=== PATIENT | male | born 1940 | race Asian ===

== ENCOUNTER 2020-03-06 00:16 | Inpatient (IN) | payer MEDICARE ==
[~2020-03-06] VITALS: Ht 172.7 cm; Wt 68.0 kg
[2020-03-06] MEDS ORDERED: MORPHINE SULFATE 4 MG/ML CPJ (NOT FOR IM USE) IV STA (00:31)
[2020-03-06] MEDS ORDERED: ONDANSETRON HCL 4MG/2ML INJ IV STA (00:31)
[2020-03-06 00:52] LABS: BASOPHILS % 0.3 % (0.0-2.0); EOSINOPHILS % 0.5 % (0.0-5.0); HEMATOCRIT. 39.8 % (42.0-52.0); HEMOGLOBIN. 13.7 g/dL (14.0-18.0); LYMPHOCYTES % 15.2 % (20.0-50.0); MEAN CORPUSCULAR HEMOGLOBIN 29.6 pg (28.0-32.0); MEAN CORPUSCULAR VOLUME 85.9 fL (80.0-94.0); MEAN PLATELET VOLUME 7.2 fl (7.4-10.4); MONOCYTES % 4.3 % (2.0-8.0); NEUTROPHILS % 79.7 % (40.0-76.0); PLATELET 367 x1000/uL (130-400); RED BLOOD CELL COUNT 4.64 mill/uL (4.7-6.1); RED CELL DISTRIBUTION WIDTH 13.4 % (11.6-14.6)
[2020-03-06 00:56] LABS: CHLORIDE 99 mEq/L (98-107)
[2020-03-06] MEDS ORDERED: PIPERACILLIN/TAZOBACTAM 3.375GM/50ML PREMIX IV ONE (01:15)
[2020-03-06] MEDS ORDERED: PIPERACILLIN/TAZ 3.375G PREMIX 50 ML IV NR (01:30)
[2020-03-06] MEDS ORDERED: HYDROMORPHONE HCL/PF 2MG/ML CPJ IV ONE (02:45)
[2020-03-06 02:52] LABS: COLOR URINE YELLOW (YELLOW); KETONES URINE TRACE (NEGATIVE); LEUKOCYTE ESTERASE URINE NEGATIVE (NEGATIVE); NITRITE URINE NEGATIVE (NEGATIVE); OCCULT BLOOD URINE NEGATIVE (NEGATIVE); PROTEIN URINE 1+ (NEGATIVE); SPECIFIC GRAVITY URINE 1.021 (1.005-1.030); UROBILINOGEN URINE 0.2 E.U./dL (0.2-1.0)
[2020-03-06 02:53] LABS: CLARITY URINE HAZY (CLEAR)
[2020-03-06] MEDS ORDERED: IOHEXOL-300 100 ML BOTTLE ONE (03:02)
[2020-03-06] MEDS ORDERED: SUCCINYLCHOLINE CHLORIDE 200MG/10ML IV ONE (05:25)
[2020-03-06] MEDS ORDERED: METOCLOPRAMIDE HCL 10MG/2ML VIAL ONE (05:25)
[2020-03-06] MEDS ORDERED: SODIUM CHLORIDE 0.9% 10ML VIAL ONE (05:25)
[2020-03-06] MEDS ORDERED: ROCURONIUM BROMIDE 10MG/ML VIAL 5ML IV ONE (05:25)
[2020-03-06] MEDS ORDERED: PHENYLEPHRINE HCL 10 MG/ML 1ML (IV VIAL) IV ONE (05:25)
[2020-03-06] MEDS ORDERED: LIDOCAINE HCL/PF 1% 10 MG/ML 5ML VIAL ONE (05:25)
[2020-03-06] MEDS ORDERED: EPHEDRINE SULFATE 50MG/ML VIAL ONE (05:25)
[2020-03-06] MEDS ORDERED: PROPOFOL 200MG/20ML VIAL IV ONE (05:25)
[2020-03-06] MEDS ORDERED: NEOSTIGMINE METHYLSULFATE 1MG/ML 10 ML VIAL ONE (05:25)
[2020-03-06] MEDS ORDERED: MIDAZOLAM HCL 2 MG/2 ML VIAL ONE (05:25)
[2020-03-06] MEDS ORDERED: ONDANSETRON HCL 4MG/2ML INJ ONE (05:25)
[2020-03-06] MEDS ORDERED: GLYCOPYRROLATE 0.2 MG/ML 2ML VIAL ONE (05:25)
[2020-03-06] MEDS ORDERED: FENTANYL CITRATE/PF 50MCG/ML 2ML VIAL ONE (05:25)
[2020-03-06] MEDS ORDERED: ALBUMIN HUMAN 12.5G/250ML (5%) IV ONE (05:43)
[2020-03-06] MEDS ORDERED: LEVOFLOXACIN 500MG PREMIX 100 ML IV SCH (05:45)
[2020-03-06] MEDS ORDERED: LORAZEPAM 2MG/ML CPJ IV PRN (06:30)
[2020-03-06] MEDS ORDERED: IPRATROPIUM/ALBUTEROL 0.5-3(2.5)MG/3ML NEB NEB PRN (06:30)
[2020-03-06] MEDS ORDERED: DEXT 5%/LACTATED RINGERS 1,000 ML IV SCH (06:30)
[2020-03-06] MEDS ORDERED: ONDANSETRON HCL 4MG/2ML INJ IV PRN ×2 (06:30→06:45)
[2020-03-06] MEDS ORDERED: PIPERACILLIN/TAZ 3.375G PREMIX 50 ML IV SCH (06:30)
[2020-03-06] MEDS ORDERED: MORPHINE SULFATE 2 MG/ML CPJ (NOT FOR IM USE) IV PRN ×2 (06:30→06:45)
[2020-03-06] MEDS ORDERED: ACETAMINOPHEN 650MG SUPP PR PRN (06:30)
[2020-03-06] MEDS ORDERED: NITROGLYCERIN 0.4MG TABLET SL SL PRN (06:30)
[2020-03-06] MEDS ORDERED: SODIUM CHLORIDE 0.9% 1,000 ML IV ONE (06:45)
[2020-03-06] MEDS ORDERED: MEPERIDINE HCL/PF 25MG/ML CPJ IV PRN ×2 (06:45)
[2020-03-06] MEDS: HYDROMORPHONE HCL/PF 2MG/ML CPJ IV PRN ×2 (07:01→07:58)
[2020-03-06] MEDS ORDERED: HYDROMORPHONE HCL/PF 2MG/ML CPJ ONE (07:03)
[2020-03-06] MEDS ORDERED: LABETALOL 5MG/ML SYR 20 MG/4 ML SYRINGE IV ONE ×2 (07:45→07:56)
[2020-03-06 08:00] VITALS: BP 135/52
[2020-03-06] MEDS ORDERED: PIPERACILLIN/TAZOBACTAM 3.375 G in DEXT 5% WATER 100 ML IV NR (09:00)
[2020-03-06] MEDS: FAMOTIDINE 20MG/2ML VIAL IV SCH ×2 (09:35→20:39)
[2020-03-06 09:40] VITALS: BP 137/74
[2020-03-06 12:00] VITALS: BP 151/57
[2020-03-06] MEDS: DEXT 5%/0.45% NACL KCL 20MEQ/L 1,000 ML IV SCH (13:53)
[2020-03-06] MEDS: MORPHINE SULFATE 4 MG/ML CPJ (NOT FOR IM USE) IV PRN ×2 (13:54→21:00)
[2020-03-06] MEDS ORDERED: HYDRALAZINE 20MG/ML VIAL IV PRN (14:45)
[2020-03-06] MEDS: PIPERACILLIN/TAZOBACTAM 3.375 G in DEXT 5% WATER 100 ML IV SCH ×2 (15:15→20:38)
[2020-03-06 16:00] VITALS: BP_SYST 152; BP_SYST 178; BP_DIAS 65; BP_DIAS 71
[2020-03-06] MEDS ORDERED: PANTOPRAZOLE SODIUM 40 MG/VIAL IV SCH (18:00)
[2020-03-06] MEDS: MORPHINE SULFATE 2 MG/ML CPJ (NOT FOR IM USE) IV PRN (18:06)
[2020-03-06 20:00] VITALS: BP 158/69
[2020-03-07] VITALS: BP 142/56
[2020-03-07 04:00] VITALS: BP 170/57
[2020-03-07] MEDS: MORPHINE SULFATE 4 MG/ML CPJ (NOT FOR IM USE) IV PRN ×2 (04:26→11:29)
[2020-03-07] MEDS: PIPERACILLIN/TAZOBACTAM 3.375 G in DEXT 5% WATER 100 ML IV SCH ×3 (06:27→21:35)
[2020-03-07 08:00] VITALS: BP 144/55
[2020-03-07] MEDS: FAMOTIDINE 20MG/2ML VIAL IV SCH ×2 (09:00→21:35)
[2020-03-07 10:07] LABS: BASOPHILS % 0.2 % (0.0-2.0); EOSINOPHILS % 0.5 % (0.0-5.0); HEMATOCRIT. 35.7 % (42.0-52.0); MEAN CORPUSCULAR HEMOGLOBIN 29.4 pg (28.0-32.0); MEAN CORPUSCULAR VOLUME 87.2 fL (80.0-94.0); MEAN PLATELET VOLUME 7.4 fl (7.4-10.4); MONOCYTES % 6.2 % (2.0-8.0); NEUTROPHILS % 85.1 % (40.0-76.0); PLATELET 240 x1000/uL (130-400); RED CELL DISTRIBUTION WIDTH 13.5 % (11.6-14.6)
[2020-03-07 10:16] LABS: CHLORIDE 104 mEq/L (98-107)
[2020-03-07 10:22] LABS: PHOSPHORUS 1.9 mg/dL (2.5-4.9)
[2020-03-07 12:00] VITALS: BP 153/64
[2020-03-07] MEDS: FLUCONAZOLE 200 MG/100ML BAG 100 ML IV SCH (14:03)
[2020-03-07 16:00] VITALS: BP 167/65
[2020-03-07 20:00] VITALS: BP 173/65
[2020-03-08] VITALS: BP 158/76
[2020-03-08] MEDS: DEXT 5%/0.45% NACL KCL 20MEQ/L 1,000 ML IV SCH ×2 (00:47→23:52)
[2020-03-08 04:00] VITALS: BP 180/81
[2020-03-08] MEDS: HYDRALAZINE 10 MG in SODIUM CHLORIDE 0.9% 49.5 ML IV PRN (05:00)
[2020-03-08 06:07] LABS: CHLORIDE 103 mEq/L (98-107)
[2020-03-08 06:16] LABS: PHOSPHORUS 1.4 mg/dL (2.5-4.9)
[2020-03-08] MEDS: PIPERACILLIN/TAZOBACTAM 3.375 G in DEXT 5% WATER 100 ML IV SCH ×3 (06:19→21:45)
[2020-03-08] MEDS: MORPHINE SULFATE 2 MG/ML CPJ (NOT FOR IM USE) IV PRN (06:21)
[2020-03-08 06:24] LABS: BASOPHILS % 0.2 % (0.0-2.0); EOSINOPHILS % 0.5 % (0.0-5.0); HEMOGLOBIN. 11.7 g/dL (14.0-18.0); LYMPHOCYTES % 7.7 % (20.0-50.0); MEAN CORPUSCULAR HEMOGLOBIN 29.7 pg (28.0-32.0); MEAN CORPUSCULAR VOLUME 86.1 fL (80.0-94.0); MEAN PLATELET VOLUME 7.8 fl (7.4-10.4); MONOCYTES % 5.4 % (2.0-8.0); NEUTROPHILS % 86.2 % (40.0-76.0); PLATELET 243 x1000/uL (130-400); RED BLOOD CELL COUNT 3.95 mill/uL (4.7-6.1); RED CELL DISTRIBUTION WIDTH 13.6 % (11.6-14.6)
[2020-03-08 08:00] VITALS: BP 155/69
[2020-03-08] MEDS: FAMOTIDINE 20MG/2ML VIAL IV SCH ×2 (09:02→21:44)
[2020-03-08 12:00] VITALS: BP 154/69
[2020-03-08] MEDS: FLUCONAZOLE 200 MG/100ML BAG 100 ML IV SCH (13:56)
[2020-03-08 16:00] VITALS: BP 161/68
[2020-03-08] MEDS: ACETAMINOPHEN 650MG SUPP PR PRN ×2 (16:10→21:44)
[2020-03-08 20:00] VITALS: BP 165/77
[2020-03-08] MEDS ORDERED: FLUCONAZOLE IV NR (20:00)
[2020-03-09] VITALS: BP 173/73
[2020-03-09] MEDS ORDERED: SODIUM PHOS,M-BASIC-D-BASIC 30 MM in DEXT 5% WATER 500 ML IV NR ×2
[2020-03-09] MEDS: HYDRALAZINE 10 MG in SODIUM CHLORIDE 0.9% 49.5 ML IV PRN ×2 (00:42→14:02)
[2020-03-09] MEDS: PIPERACILLIN/TAZOBACTAM 3.375 G in DEXT 5% WATER 100 ML IV SCH ×4 (03:14→21:00)
[2020-03-09 04:00] VITALS: BP 159/68
[2020-03-09 06:12] LABS: BASOPHILS % 0.2 % (0.0-2.0); EOSINOPHILS % 1.3 % (0.0-5.0); HEMATOCRIT. 35.3 % (42.0-52.0); HEMOGLOBIN. 11.9 g/dL (14.0-18.0); LYMPHOCYTES % 8.6 % (20.0-50.0); MEAN PLATELET VOLUME 7.3 fl (7.4-10.4); MONOCYTES % 7.2 % (2.0-8.0); NEUTROPHILS % 82.7 % (40.0-76.0); PLATELET 268 x1000/uL (130-400); RED BLOOD CELL COUNT 4.11 mill/uL (4.7-6.1); RED CELL DISTRIBUTION WIDTH 13.6 % (11.6-14.6)
[2020-03-09 06:46] LABS: CHLORIDE 103 mEq/L (98-107)
[2020-03-09 06:51] LABS: PHOSPHORUS 2.3 mg/dL (2.5-4.9)
[2020-03-09 08:00] VITALS: BP 155/73
[2020-03-09] MEDS: FAMOTIDINE 20MG/2ML VIAL IV SCH ×2 (09:00→21:14)
[2020-03-09 12:00] VITALS: BP 176/57
[2020-03-09] MEDS: FLUCONAZOLE 400MG/200ML BAG 200 ML IV SCH (13:36)
[2020-03-09 16:00] VITALS: BP 128/68
[2020-03-09 20:00] VITALS: BP 147/67
[2020-03-10] VITALS (7 sets, daily range): BP systolic 111–175; BP diastolic 62–77
[2020-03-10] MEDS: PIPERACILLIN/TAZOBACTAM 3.375 G in DEXT 5% WATER 100 ML IV SCH ×4 (04:30→21:11)
[2020-03-10] MEDS: DEXT 5%/0.45% NACL KCL 20MEQ/L 1,000 ML IV SCH ×2 (04:42→15:28)
[2020-03-10 06:41] LABS: CHLORIDE 102 mEq/L (98-107)
[2020-03-10 07:00] LABS: BASOPHILS % 0.2 % (0.0-2.0); EOSINOPHILS % 2.4 % (0.0-5.0); HEMOGLOBIN. 11.9 g/dL (14.0-18.0); LYMPHOCYTES % 12.3 % (20.0-50.0); MEAN CORPUSCULAR HEMOGLOBIN 29.3 pg (28.0-32.0); MEAN CORPUSCULAR VOLUME 86.3 fL (80.0-94.0); MEAN PLATELET VOLUME 7.4 fl (7.4-10.4); MONOCYTES % 8.6 % (2.0-8.0); NEUTROPHILS % 76.5 % (40.0-76.0); PLATELET 303 x1000/uL (130-400); RED BLOOD CELL COUNT 4.05 mill/uL (4.7-6.1); RED CELL DISTRIBUTION WIDTH 13.6 % (11.6-14.6)
[2020-03-10] MEDS: FAMOTIDINE 20MG/2ML VIAL IV SCH ×2 (09:14→21:11)
[2020-03-10] MEDS: HYDRALAZINE 10 MG in SODIUM CHLORIDE 0.9% 49.5 ML IV PRN ×2 (12:33→21:19)
[2020-03-10] MEDS: FLUCONAZOLE 400MG/200ML BAG 200 ML IV SCH (13:09)
[2020-03-11] VITALS (7 sets, daily range): BP systolic 114–168; BP diastolic 62–82
[2020-03-11] MEDS: DEXT 5%/0.45% NACL KCL 20MEQ/L 1,000 ML IV SCH ×3 (03:14→21:31)
[2020-03-11] MEDS: PIPERACILLIN/TAZOBACTAM 3.375 G in DEXT 5% WATER 100 ML IV SCH ×4 (03:14→21:33)
[2020-03-11] MEDS: FAMOTIDINE 20MG/2ML VIAL IV SCH ×2 (08:24→21:32)
[2020-03-11] MEDS: FLUCONAZOLE 400MG/200ML BAG 200 ML IV SCH (13:05)
[2020-03-11] MEDS: HYDRALAZINE 10 MG in SODIUM CHLORIDE 0.9% 49.5 ML IV PRN ×2 (14:23→17:25)
[2020-03-11] MEDS ORDERED: TRAMADOL 50MG TABLET PO PRN (21:00)
[2020-03-12] VITALS (9 sets, daily range): BP systolic 147–185; BP diastolic 61–90
[2020-03-12] MEDS: MORPHINE SULFATE 2 MG/ML CPJ (NOT FOR IM USE) IV PRN ×2 (02:00→10:36)
[2020-03-12] MEDS: PIPERACILLIN/TAZOBACTAM 3.375 G in DEXT 5% WATER 100 ML IV SCH ×4 (04:39→22:19)
[2020-03-12] MEDS: HYDRALAZINE 10 MG in SODIUM CHLORIDE 0.9% 49.5 ML IV PRN ×2 (05:32→21:14)
[2020-03-12 06:56] LABS: CHLORIDE 102 mEq/L (98-107)
[2020-03-12 07:15] LABS: BASOPHILS % 0.4 % (0.0-2.0); EOSINOPHILS % 0.9 % (0.0-5.0); HEMATOCRIT. 33.4 % (42.0-52.0); HEMOGLOBIN. 11.6 g/dL (14.0-18.0); LYMPHOCYTES % 15.1 % (20.0-50.0); MEAN CORPUSCULAR HEMOGLOBIN 29.8 pg (28.0-32.0); MEAN CORPUSCULAR VOLUME 85.5 fL (80.0-94.0); MONOCYTES % 9.1 % (2.0-8.0); NEUTROPHILS % 74.5 % (40.0-76.0); PLATELET 357 x1000/uL (130-400)
[2020-03-12] MEDS: FAMOTIDINE 20MG/2ML VIAL IV SCH ×2 (08:27→22:20)
[2020-03-12] MEDS: DUTASTERIDE 0.5MG CAPSULE PO SCH (08:51)
[2020-03-12] MEDS: TAMSULOSIN HCL 0.4MG SR CAPSULE PO SCH ×2 (08:52→22:22)
[2020-03-12] MEDS: FLUCONAZOLE 400MG/200ML BAG 200 ML IV SCH (13:12)
[2020-03-12] MEDS: DEXT 5%/0.45% NACL KCL 20MEQ/L 1,000 ML IV SCH (15:49)
[2020-03-13] VITALS (7 sets, daily range): BP systolic 141–183; BP diastolic 59–92
[2020-03-13] MEDS: PIPERACILLIN/TAZOBACTAM 3.375 G in DEXT 5% WATER 100 ML IV SCH ×4 (02:40→21:04)
[2020-03-13] MEDS: DEXT 5%/0.45% NACL KCL 20MEQ/L 1,000 ML IV SCH ×2 (02:41→13:58)
[2020-03-13] MEDS: HYDRALAZINE 10 MG in SODIUM CHLORIDE 0.9% 49.5 ML IV PRN ×2 (04:40→16:48)
[2020-03-13] MEDS: DUTASTERIDE 0.5MG CAPSULE PO SCH (09:41)
[2020-03-13] MEDS: FAMOTIDINE 20MG/2ML VIAL IV SCH ×2 (09:42→21:04)
[2020-03-13] MEDS: TAMSULOSIN HCL 0.4MG SR CAPSULE PO SCH ×2 (09:42→21:04)
[2020-03-13] MEDS: FLUCONAZOLE 400MG/200ML BAG 200 ML IV SCH (13:59)
[2020-03-13] MEDS: MORPHINE SULFATE 2 MG/ML CPJ (NOT FOR IM USE) IV PRN (18:54)
[2020-03-14] VITALS: BP 154/80
[2020-03-14] MEDS: DEXT 5%/0.45% NACL KCL 20MEQ/L 1,000 ML IV SCH ×2 (03:16→20:57)
[2020-03-14] MEDS: PIPERACILLIN/TAZOBACTAM 3.375 G in DEXT 5% WATER 100 ML IV SCH ×4 (03:16→21:01)
[2020-03-14 04:00] VITALS: BP 166/75
[2020-03-14 08:00] VITALS: BP 172/83
[2020-03-14] MEDS: AMLODIPINE 10MG TABLET PO SCH (10:17)
[2020-03-14] MEDS: TAMSULOSIN HCL 0.4MG SR CAPSULE PO SCH ×2 (10:17→21:01)
[2020-03-14] MEDS: FAMOTIDINE 20MG/2ML VIAL IV SCH ×2 (10:17→21:01)
[2020-03-14] MEDS: DUTASTERIDE 0.5MG CAPSULE PO SCH (10:17)
[2020-03-14 12:00] VITALS: BP 206/79
[2020-03-14] MEDS: HYDRALAZINE 10 MG in SODIUM CHLORIDE 0.9% 49.5 ML IV PRN (13:03)
[2020-03-14] MEDS: FLUCONAZOLE 400MG/200ML BAG 200 ML IV SCH (13:48)
[2020-03-14] MEDS: DOCUSATE SODIUM 100MG CAPSULE PO SCH ×2 (13:48→20:58)
[2020-03-14 16:00] VITALS: BP 156/74
[2020-03-14] MEDS: LOSARTAN POTASSIUM 100 MG TABLET PO SCH (17:03)
[2020-03-14] MEDS ORDERED: METO-539 PO (17:11)
[2020-03-14] MEDS ORDERED: LOSA50TA41 MT (18:46)
[2020-03-14] MEDS ORDERED: AMLO5TAB88 MT (18:46)
[2020-03-14 20:00] VITALS: BP 158/76
[2020-03-14] MEDS ORDERED: POLYETHYLENE GLYCOL 3350 (17GM) 1 DOSE PACK PO SCH (21:00)
[2020-03-15] VITALS: BP 167/81
[2020-03-15] MEDS: HYDRALAZINE 10 MG in SODIUM CHLORIDE 0.9% 49.5 ML IV PRN (00:40)
[2020-03-15] MEDS: PIPERACILLIN/TAZOBACTAM 3.375 G in DEXT 5% WATER 100 ML IV SCH ×3 (02:02→14:50)
[2020-03-15 04:00] VITALS: BP 154/73
[2020-03-15 08:00] VITALS: BP 148/69
[2020-03-15] MEDS ORDERED: DUTA0.5C2 PO (08:05)
[2020-03-15] MEDS ORDERED: TRAM50TA3 PO (08:05)
[2020-03-15] MEDS ORDERED: METR500T MT (08:05)
[2020-03-15] MEDS ORDERED: FLUC100T42 MT (08:05)
[2020-03-15] MEDS ORDERED: TAMS-11 PO (08:05)
[2020-03-15] MEDS ORDERED: LEVO500T2 MT (08:05)
[2020-03-15] MEDS: LOSARTAN POTASSIUM 100 MG TABLET PO SCH (08:52)
[2020-03-15] MEDS: DUTASTERIDE 0.5MG CAPSULE PO SCH (08:52)
[2020-03-15] MEDS: AMLODIPINE 10MG TABLET PO SCH (08:53)
[2020-03-15] MEDS: TAMSULOSIN HCL 0.4MG SR CAPSULE PO SCH (08:53)
[2020-03-15] MEDS: DOCUSATE SODIUM 100MG CAPSULE PO SCH (08:53)
[2020-03-15] MEDS: FAMOTIDINE 20MG/2ML VIAL IV SCH (08:53)
[2020-03-15 11:37] VITALS: BP 148/69
[2020-03-15 12:00] VITALS: BP 155/73
[2020-03-15] MEDS: FLUCONAZOLE 400MG/200ML BAG 200 ML IV SCH (14:00)
== END 2020-03-15 15:20 | disposition home health service (06) | DRG 326 ==
LOC: ER 00:16 → 6EST 03:26 → ENRESERV 05:31 → SUPCPDRO 06:30
PROVIDERS: ADMIT Internal Medicine; ATTEND Internal Medicine
PROC: 0DU707Z Supplement Stomach, Pylorus with Autologous Tissue Substitute, Open Approach (ICD-10-PCS; principal; 2020-03-06)
PROC: 0DB60ZX Excision of Stomach, Open Approach, Diagnostic (ICD-10-PCS; 2020-03-06)
DX: K25.5 Chronic or unspecified gastric ulcer with perforation (principal); K65.9 Peritonitis, unspecified; J18.9 Pneumonia, unspecified organism; E87.1 Hypo-osmolality and hyponatremia; K56.7 Ileus, unspecified; K26.5 Chronic or unspecified duodenal ulcer with perforation; I10 Essential (primary) hypertension; R26.9 Unspecified abnormalities of gait and mobility; R33.9 Retention of urine, unspecified; D64.9 Anemia, unspecified; R13.10 Dysphagia, unspecified; Z82.49 Family history of ischemic heart disease and other diseases of the circulatory system; Z85.46 Personal history of malignant neoplasm of prostate; Z83.3 Family history of diabetes mellitus; Z86.19 Personal history of other infectious and parasitic diseases
CPT/HCPCS: 36415; 71045; 74177; 80048; 80053; 81003; 83036; 83605; 83735; 84100; 84145; 85025; 86850; 86900; 87070; 87075; 87106; 88305; 88313; 92610; 93005; 93970; 97116; 97162; 97166; 97530; 97535; 99291; J0330; J0360; J1170; J1450; J2250; J2270; J2370; J2405; J2543; J2704; J2710; J2765; J3010; J3490; J7060; P9041; Q9967